=== PATIENT | male | born 1990 | race Caucasian/White ===

== ENCOUNTER 2017-04-14 19:25 | Inpatient (IN) | payer MEDICAID ==
[~2017-04-14] VITALS: Ht 170.2 cm; Wt 64.2 kg
[2017-04-14] MEDS ORDERED: ONDANSETRON HCL 4 MG/2 ML VIAL IV ONE (19:45)
[2017-04-14] MEDS ORDERED: KETOROLAC TROMETH 30 MG/ML 1ML VIAL IV ONE (19:45)
[2017-04-14] MEDS ORDERED: MORPHINE SULFATE 4 MG/ML SYR/VIAL IV ONE (19:45)
[2017-04-14] MEDS ORDERED: SODIUM CHLORIDE 0.9% 1,000 ML IV ONE (20:00)
[2017-04-14 20:10] LABS: Basophils # (auto) 0 uL; Basophils % (auto) 0.4 % (0.0-2.0); Eosinophils # (auto) 0 uL; Eosinophils % (auto) 0.2 % (0.0-7.0); Hematocrit 45.6 % (41.0-53.0); Lymphocytes # (auto) 1.1 uL; Mean Corpuscular Hemoglobin 31.2 pg (28.0-32.0); Mean Corpuscular Hgb Conc. 35.1 g/dL (32.0-36.0); Mean Corpuscular Volume 88.9 fL (80.0-100.0); Monocytes # (auto) 0.6 uL; Monocytes % (auto) 5.6 % (0.0-12.0); Neutrophils # (auto) 8.6 uL; Neutrophils % (auto) 82.8 % (37.0-80.0); Nucleated Red Blood Cells % 0.1 %; Platelet Count (auto) 266 10^3/uL (140-450); Red Blood Cells 5.13 10^6/uL (4.5-5.90); Red Cell Distribution Width 12.3 % (11.8-14.3); White Blood Cell 10.3 10^3/uL (4.4-10.8)
[2017-04-14 20:28] LABS: Albumin 4.7 g/dL (3.4-5.0); Calcium 9.2 mg/dL (8.5-10.1); Potassium 3.3 mmol/L (3.5-5.1)
[2017-04-14 20:29] LABS: Bilirubin, Total 0.5 mg/dL (0.2-1.0)
[2017-04-14] MEDS ORDERED: HYDROmorphone HCL 2 MG/ML VL IV ONE ×2 (20:30→21:45)
[2017-04-14 21:10] LABS: Urine Bacteria NONE SEEN /hpf (None Seen); Urine Blood 3+ /uL (Negative); Urine Mucus FEW (None Seen); Urine Specific Gravity 1.023 (1.001-1.035); Urine WBC 6 /hpf (0 - 3)
[2017-04-15] MEDS ORDERED: MORPHINE SULFATE 4 MG/ML SYR/VIAL IV ONE (02:15)
[2017-04-15] MEDS ORDERED: ACETAMINOPHEN 325 MG TAB PO PRN (03:00)
[2017-04-15] MEDS ORDERED: cefTRIAXone 1GM/10ml IVPUSH 10 ML IV ONE ×2 (03:00→09:17)
[2017-04-15] MEDS ORDERED: TAMSULOSIN HYDROCHLORIDE 0.4 MG CAP PO ONE (03:00)
[2017-04-15] MEDS ORDERED: SODIUM CHLORIDE 0.9% 500 ML IV ONE (03:00)
[2017-04-15] MEDS ORDERED: TEMAZEPAM 15 MG CAP PO PRN (03:00)
[2017-04-15] MEDS: SODIUM CHLORIDE 0.9% 1,000 ML IV SCH ×2 (03:00→16:55)
[2017-04-15] MEDS: HYDROcodone-ACET 5/325MG TAB PO PRN (04:03)
[2017-04-15] MEDS: cefTRIAXone 1GM/10ml IVPUSH 10 ML IV SCH (09:31)
[2017-04-15] MEDS: MORPHINE SULF INJ 2 MG/ML SYRINGE 1ML IV PRN ×3 (09:31→20:08)
[2017-04-15] MEDS: FAMOTIDINE 20 MG TAB PO SCH ×2 (09:31→22:00)
[2017-04-15] MEDS ORDERED: POTASSIUM CHL 20 Meq TABLET PO ONE (12:30)
[2017-04-15] MEDS: ONDANSETRON HCL 4 MG/2 ML VIAL IV PRN ×2 (13:33→20:08)
[2017-04-15 20:00] VITALS: BP 122/72
[2017-04-15 22:00] VITALS: BP 122/72
[2017-04-16] MEDS: ONDANSETRON HCL 4 MG/2 ML VIAL IV PRN ×5 (00:50→21:36)
[2017-04-16] MEDS: MORPHINE SULF INJ 2 MG/ML SYRINGE 1ML IV PRN ×3 (00:50→09:51)
[2017-04-16] MEDS: SODIUM CHLORIDE 0.9% 1,000 ML IV SCH ×2 (04:00→15:50)
[2017-04-16 05:02] VITALS: BP 126/78
[2017-04-16 05:52] LABS: Basophils # (auto) 0 uL; Basophils % (auto) 0.4 % (0.0-2.0); Eosinophils # (auto) 0.2 uL; Eosinophils % (auto) 2.8 % (0.0-7.0); Hematocrit 43.7 % (41.0-53.0); Hemoglobin 15.2 g/dL (13.5-17.5); Lymphocytes # (auto) 2.8 uL; Lymphocytes % (auto) 48.6 % (10.0-50.0); Mean Corpuscular Hemoglobin 31.4 pg (28.0-32.0); Mean Corpuscular Hgb Conc. 34.8 g/dL (32.0-36.0); Mean Corpuscular Volume 90.5 fL (80.0-100.0); Monocytes # (auto) 0.6 uL; Monocytes % (auto) 11.3 % (0.0-12.0); Neutrophils # (auto) 2.1 uL; Neutrophils % (auto) 36.9 % (37.0-80.0); Nucleated Red Blood Cells % 0.1 %; Platelet Count (auto) 262 10^3/uL (140-450); Red Blood Cells 4.83 10^6/uL (4.5-5.90); White Blood Cell 5.8 10^3/uL (4.4-10.8)
[2017-04-16 06:13] LABS: Albumin 3.8 g/dL (3.4-5.0); BUN/Creatinine Ratio 9.4; Calcium 8.4 mg/dL (8.5-10.1); Potassium 3.9 mmol/L (3.5-5.1)
[2017-04-16 06:15] LABS: Bilirubin, Total 0.6 mg/dL (0.2-1.0); Total Protein 7.1 g/dL (6.4-8.2)
[2017-04-16 09:00] VITALS: BP 130/77
[2017-04-16] MEDS: FAMOTIDINE 20 MG TAB PO SCH ×2 (09:51→21:36)
[2017-04-16 13:00] VITALS: BP 123/91
[2017-04-16] MEDS: HYDROmorphone HCL 2 MG/ML VL IV PRN ×2 (15:50→21:36)
[2017-04-16 17:00] VITALS: BP 138/88
[2017-04-16] MEDS ORDERED: TAMSULOSIN HYDROCHLORIDE 0.4 MG CAP PO SCH (18:00)
[2017-04-16 21:50] VITALS: BP 124/75
[2017-04-16] MEDS ORDERED: INFLUENZA QUAD 2017-2018 0.5 ML SYRG IM ONE (22:00)
[2017-04-17] MEDS: ONDANSETRON HCL 4 MG/2 ML VIAL IV PRN ×2 (03:00→12:11)
[2017-04-17] MEDS: HYDROmorphone HCL 2 MG/ML VL IV PRN ×2 (03:00→12:12)
[2017-04-17] MEDS: SODIUM CHLORIDE 0.9% 1,000 ML IV SCH ×2 (03:00→09:36)
[2017-04-17 05:30] VITALS: BP 123/69
[2017-04-17 09:00] VITALS: BP 118/72
[2017-04-17] MEDS: FAMOTIDINE 20 MG TAB PO SCH (09:33)
[2017-04-17] MEDS: cefTRIAXone 1GM/10ml IVPUSH 10 ML IV SCH (09:36)
[2017-04-17 13:00] VITALS: BP 130/82
[2017-04-17] MEDS ORDERED: HYDR-4683 PO (14:32)
[2017-04-17] MEDS ORDERED: TAM04C PO (14:32)
[2017-04-17 14:58] VITALS: BP 130/82
[2017-04-17] MEDS: HYDROcodone-ACET 5/325MG TAB PO PRN (15:37)
== END 2017-04-17 16:00 | disposition home or self-care (01) | DRG 465 ==
LOC: ER 19:25 → OVERFLOW 19:26 → WEST WING 04-15 20:00
PROVIDERS: ADMIT Nurse Practitioner; ATTEND Internal Medicine
DX: N13.2 Hydronephrosis with renal and ureteral calculous obstruction (principal); N39.0 Urinary tract infection, site not specified; E87.6 Hypokalemia; Z87.442 Personal history of urinary calculi; Z23 Encounter for immunization
CPT/HCPCS: 36415; 74176; 80053; 81001; 85025; 87081; 87086; 96361; 96374; 96375; 96376; J1885; J2405